=== PATIENT | female | born 1950 | race Caucasian/White ===

== ENCOUNTER → 2022-07-27 08:39 | Outpatient (CLI) | payer MEDICARE, SELFPAY ==
--- NOTE | ~2022-07-27 | MR_ITS ---
EXAMINATION: MR lumbar spine wo con DATE: 07/27/2022 09:15 INDICATION: Compression deformity of vertebra. Low back pain. TECHNIQUE: Magnetic resonance imaging (MRI) of the lumbar spine was performed without intravenous con trast. Sequences included sagittal T2-weighted FSE, sagittal T2-weighted FS FSE, sagittal T1-weighted FSE, and axial T2-weighted FSE. COMPARISON: None FINDINGS: There is 8 degrees dextrocurvature of lumbar spine. There is 4 mm retrolisthesis of L2 on L 3 and 3 mm retrolisthesis of L3 on L4. There is mild chronic height loss of T11 vertebral body. There is mildly decreased disc height at L1-L2, severely decreased disc height at L2-L3, moderately decrea sed disc height at L3-L4, and severely decreased disc height at L4-L5 and L5-S1 with endplate remodel ing. The distal spinal cord signal intensity is normal. The conus medullaris is at L1-L2. The followi ng disc levels are specifically discussed: L1-L2: The disc is bulging. There is mild left facet joint osteoarthritis. There is mild bilateral ne ural foraminal stenosis. There is mild central canal stenosis. L2-L3: The disc is bulging and has an annular fissure. There is moderate right and severe left facet joint osteoarthritis. There is moderate right and severe left neural foraminal stenosis. There is mil d central canal stenosis. L3-L4: The disc is bulging and has an annular fissure. There is severe bilateral facet joint osteoart hritis. There is moderate bilateral neural foraminal stenosis. There is mild central canal stenosis. L4-L5: The disc is bulging and has an annular fissure. There is severe bilateral facet joint osteoart hritis. There is moderate bilateral neural foraminal stenosis. There is mild central canal stenosis. L5-S1: The disc is bulging. There is moderate bilateral facet joint osteoarthritis. There is mild clara ateral neural foraminal stenosis. There is mild central canal stenosis. IMPRESSION: 1. Severe lumbar spondylosis. Reviewed, dictated and finalized at location A.
== END ==
PROVIDERS: PCP Pediatrics; Visit Provider Pediatrics
DX: M25.551 Pain in right hip (principal); M43.9 Deforming dorsopathy, unspecified; M46.1 Sacroiliitis, not elsewhere classified; M51.9 Unspecified thoracic, thoracolumbar and lumbosacral intervertebral disc disorder; R20.0 Anesthesia of skin; M54.30 Sciatica, unspecified side; M47.896 Other spondylosis, lumbar region
CPT/HCPCS: 72148